=== PATIENT | male | born 1945 | race Caucasian/White ===

== ENCOUNTER → 2016-10-11 | Outpatient (CLI) | payer MEDICARE ==
--- NOTE | 2016-10-11 15:54 | RADIOLOGY REPORT (SQ) ---
EXAM DESCRIPTION: BONE SURVEY COMPLETE COMPLETED DATE/TIME: 10/11/2016 3:35 pm REASON FOR STUDY: MONOCLONAL GAMMOPATHY COMPARISON: None. TECHNIQUE: Images of the axial and proximal appendicular skeleton are obtained, along with lateral s kull and frontal chest films. LIMITATIONS: None. FINDINGS: AP CHEST: No bony findings. Lungs are clear. LATERAL SKULL: Subtle lucencies most consistent with venous lakes. No definite lytic lesion. AP BOTH HUMERI: No worrisome bone lesions. TWO-VIEW LUMBAR SPINE: No worrisome bone lesions. TWO-VIEW THORACIC SPINE: No worrisome bone lesions. AP PELVIS: Coarsened trabecula likely related to patient's age. No definite lytic lesions. AP BOTH FEMURS: Coarsened trabecula likely related to patient's age. No definite lytic lesions. OTHER: No other significant finding. IMPRESSION: Negative bone survey.
== END ==
LOC: RAD 14:54
PROVIDERS: ATTEND Internal Medicine
DX: D47.2 Monoclonal gammopathy (principal)
CPT/HCPCS: 77075

== ENCOUNTER → 2016-10-24 | Outpatient (CLI) | payer MEDICARE ==
--- NOTE | 2016-10-25 12:29 | RADIOLOGY REPORT (SQ) ---
EXAM DESCRIPTION: PET CT WHOLE BODY COMPLETED DATE/TIME: 10/24/2016 10:46 pm REASON FOR STUDY: MYELOMA C90.00 MULTIPLE MYELOMA NOT HAVING ACHIEVED REMISSION COMPARISON: Bone survey 10/11/2016 CT abdomen pelvis 05/27/2008 RADIONUCLIDE AND DOSE: 12.2 mCi F18 FDG The route of agent administration: Intravenous FASTING BLOOD SUGAR: 89 mg/dl CONTRAST TYPE AND DOSE: No CT contrast given. TECHNIQUE: Blood glucose level was verified. Above dose of FDG was injected intravenously. 2-D seg mented attenuation correction images were obtained through the entire body. Noncontrast CT images we re obtained for attenuation correction and fusion with emission images. CT images were performed wit hout oral or intravenous contrast and are not sensitive for parenchymal lesions. A series of overlap ping emission PET images were obtained. Images reviewed and manipulated at independent work station by the radiologist. Images stored on PACS. LIMITATIONS: None. FINDINGS: HEAD AND NECK: No areas of abnormal metabolic activity in the soft tissues of the head and neck. CHEST: No areas of abnormal metabolic activity in the chest. Non metabolic 1.4 x 0.7 cm prevascular lymph node axial image 117 ABDOMEN AND PELVIS: No areas of abnormal metabolic activity in the abdomen or pelvis. Expected physi ologic activity is present in the genitourinary system and bowel. Mild bilateral testicular uptake o f uncertain clinical significance, right testicle SUV 3.6, left testicle SUV 4.2. LOWER EXTREMITIES: No areas of abnormal metabolic activity in the soft tissues of the lower extremiti es. Synovial activity both knees from osteoarthritis BONES: Degenerative changes in the lower lumbar spine with bilateral facet arthropathy and degenerati ve disc loss of height lower lumbar spine. Mild bilateral SI joint arthropathy. There is increased uptake at the left 1st carpometacarpal joint from osteoarthritis. This ADDITIONAL CT FINDINGS: Obstructive lung disease, coronary artery calcifications, 7 mm left lower veronica e intrarenal nonobstructive stone, 5 cm left upper pole renal cortical cyst. Colonic diverticuli wit hout CT signs of acute diverticulitis. OTHER: No other significant findings. IMPRESSION: Findings as above. TECHNICAL DOCUMENTATION: JOB ID: [id number] [employer]- All Rights Reserved
== END ==
LOC: RAD 19:40
PROVIDERS: ATTEND Internal Medicine
DX: C90.00 Multiple myeloma not having achieved remission (principal)
CPT/HCPCS: 78816; A9552

== ENCOUNTER → 2017-01-20 | Outpatient (CLI) | payer MEDICARE, OTHER ==
--- NOTE | 2017-01-20 14:04 | RADIOLOGY REPORT (SQ) ---
EXAM DESCRIPTION: VENOUS BILATERAL LOWER COMPLETED DATE/TIME: 01/20/2017 1:50 pm REASON FOR STUDY: PAIN M79.609 PAIN IN UNSPECIFIED LIMB COMPARISON: None. TECHNIQUE: Dynamic and static ferrara scale and color images acquired of both lower extremity venous sy stems. Selected spectral images acquired with additional compression and augmentation maneuvers. Imag es stored on PACS. LIMITATIONS: None. FINDINGS: RIGHT LEG COMMON FEMORAL AND FEMORAL: Normal phasicity, compression and augmentation. No visualized echogenic m aterial on ferrara scale. No defects on color images. POPLITEAL: Normal compression and augmentation. No visualized echogenic material on ferrara scale. No de fects on color images. CALF VESSELS: Normal compression and augmentation. No visualized echogenic material on ferrara scale. No defects on color image. GSV AND SSV: Normal compression. No visualized echogenic material on ferrara scale. No defects on color images. ANY DEEP VENOUS INSUFFICIENCY: Not evaluated. ANY EVIDENCE OF POPLITEAL CYST: No. OTHER: No other significant finding. LEFT LEG COMMON FEMORAL AND FEMORAL: Normal phasicity, compression and augmentation. No visualized echogenic m aterial on ferrara scale. No defects on color images. POPLITEAL: Normal compression and augmentation. No visualized echogenic material on ferrara scale. No de fects on color images. CALF VESSELS: Normal compression and augmentation. No visualized echogenic material on ferrara scale. No defects on color images. GSV AND SSV: Normal compression. No visualized echogenic material on ferrara scale. No defects on color images. ANY DEEP VENOUS INSUFFICIENCY: Not evaluated. ANY EVIDENCE POPLITEAL CYST: No. OTHER: No other significant finding. IMPRESSION: NO EVIDENCE DVT OR SVT IN EITHER LEG. TECHNICAL DOCUMENTATION: JOB ID: [id number] [employer]- All Rights Reserved
== END ==
LOC: SP 12:47
PROVIDERS: ATTEND Internal Medicine
DX: M79.609 Pain in unspecified limb (principal); M79.89 Other specified soft tissue disorders
CPT/HCPCS: 93970

== ENCOUNTER → 2017-04-14 | Outpatient (CLI) | payer MEDICARE, OTHER ==
--- NOTE | 2017-04-14 13:52 | RADIOLOGY REPORT (SQ) ---
EXAM DESCRIPTION: U/S NON-OB PELVIS LTD W/O DOP COMPLETED DATE/TIME: 04/14/2017 10:01 am REASON FOR STUDY: HERNIA K46.9 UNSPECIFIED ABDOMINAL HERNIA WITHOUT OBSTRUCTION OR GA COMPARISON: None. TECHNIQUE: Dynamic and static grayscale images acquired of the localized site of clinical concern an d recorded on PACS. Additional selected color Doppler and spectral images recorded. SITE OF CONCERN: Right inguinal area. LIMITATIONS: None. FINDINGS: There findings consistent with right inguinal hernia. Motion is noted with Valsalva. IMPRESSION: RIGHT INGUINAL HERNIA. TECHNICAL DOCUMENTATION: JOB ID: [id number] [employer]- All Rights Reserved Reading location - IP/workstation name: [email or web address]
== END ==
LOC: RAD 09:06
PROVIDERS: ATTEND Physician Assistant Medical
DX: K40.90 Unilateral inguinal hernia, without obstruction or gangrene, not specified as recurrent (principal)
CPT/HCPCS: 76857

== ENCOUNTER → 2017-05-30 | Outpatient (CLI) | payer MEDICARE, OTHER ==
[2017-05-30 12:15] LABS: APPEARANCE,URINE CLEAR; BILIRUBIN,URINE NEGATIVE (NEGATIVE); COLOR,URINE YELLOW; GLUCOSE, URINE NEGATIVE (NEGATIVE); KETONES,URINE NEGATIVE (NEGATIVE); LEUKOCYTE ESTERASE,URINE NEGATIVE (NEGATIVE); NITRITE,URINE NEGATIVE (NEGATIVE); PROTEIN,URINE NEGATIVE (NEGATIVE); URINE SPECIFIC GRAVITY 1.009; UROBILINOGEN,URINE NEGATIVE mg/dL (<2.0)
[2017-05-30 12:23] LABS: ABSOLUTE EOSINOPHILS # (AUTO) 0.1 10^3/uL (0.0-0.6); ABSOLUTE LYMPHOCYTES (AUTO) 1.7 10^3/uL (0.5-4.7); ABSOLUTE MONOCYTES (AUTO) 0.6 10^3/uL (0.1-1.4); BASOPHILS % (AUTO) 0.2 % (0-2); EOSINOPHILS % (AUTO) 0.9 % (0-6); HEMATOCRIT 37.4 % (37.9-51.0); HEMOGLOBIN 12.6 g/dL (13.5-17.0); LYMPHOCYTES % (AUTO) 26.8 % (13-45); MEAN CORPUSCULAR HEMOGLOBIN 31.6 pg (27.0-33.4); MEAN CORPUSCULAR HGB CONC 33.6 g/dL (32.0-36.0); MEAN CORPUSCULAR VOLUME 94 fl (80-97); MONOCYTES % (AUTO) 8.8 % (3-13); PLATELET COUNT 242 10^3/uL (150-450); RED BLOOD COUNT 3.98 10^6/uL (4.35-5.55); RED CELL DISTRIBUTION WIDTH 16.6 % (11.5-14.0); SEGMENTED NEUTROPHILS % (AUTO) 63.3 % (42-78); TOTAL CELLS COUNTED % (AUTO) 100 %; WHITE BLOOD COUNT 6.3 10^3/uL (4.0-10.5)
[2017-05-30 12:50] LABS: ANION GAP 10 (5-19); BLOOD UREA NITROGEN 17 mg/dL (7-20); CALCIUM 9.4 mg/dL (8.4-10.2); CARBON DIOXIDE 29 mmol/L (22-30); CHLORIDE 101 mmol/L (98-107); GLUCOSE 98 mg/dL (75-110); POTASSIUM 4.4 mmol/L (3.6-5.0); SODIUM 139.8 mmol/L (137-145)
--- NOTE | 2017-05-30 13:21 | RADIOLOGY REPORT (SQ) ---
EXAM DESCRIPTION: CHEST PA/LATERAL COMPLETED DATE/TIME: 05/30/2017 12:17 pm REASON FOR STUDY: PRE OP COMPARISON: None. EXAM PARAMETERS: NUMBER OF VIEWS: two views TECHNIQUE: Digital Frontal and Lateral radiographic views of the chest acquired. RADIATION DOSE: NA LIMITATIONS: none FINDINGS: LUNGS AND PLEURA: No opacities, masses or pneumothorax. No pleural effusion. MEDIASTINUM AND HILAR STRUCTURES: No masses or contour abnormalities. HEART AND VASCULAR STRUCTURES: Heart normal size. No evidence for failure. BONES: No acute findings. HARDWARE: None in the chest. OTHER: No other significant finding. IMPRESSION: NO SIGNIFICANT RADIOGRAPHIC FINDING IN THE CHEST. TECHNICAL DOCUMENTATION: JOB ID: [id number] [employer]- All Rights Reserved Reading location - IP/workstation name: [email or web address]
--- NOTE | 2017-05-30 15:12 | EKG REPORT ---
SEVERITY:- ABNORMAL ECG - SINUS RHYTHM LEFT ANTERIOR FASCICULAR BLOCK : Confirmed by: Uziel Koehler 30-May-2017 15:11:49
== END ==
LOC: OD 11:35
PROVIDERS: ATTEND Orthopaedic Surgery
DX: Z01.810 Encounter for preprocedural cardiovascular examination (principal); Z01.812 Encounter for preprocedural laboratory examination; Z01.818 Encounter for other preprocedural examination
CPT/HCPCS: 36415; 71046; 80048; 81001; 85025; 93005; 93010

== ENCOUNTER 2017-06-27 05:21 | Inpatient (IN) | payer MEDICARE, OTHER ==
[~2017-06-27 05:21] MED LIST: BUPIVACAINE INJ/PF LIPOSOME/PF 266 MG/20 ML SDV IJ PRN; CEFAZOLIN INJ 1 GM VIAL IV PRN; IBUPROFEN 800 MG/NS 250 ML IV PRN; LACTATED RINGERS 1000 ML IV PRN; LANSOPRAZOLE 15 MG TAB.RAP.DR PO PRN; OXYCODONE HCL SR 10 MG TABLET PO PRN; VANCOMYCIN HCL 1,000 MG in DEXTROSE 5%-WATER 250 ML IV PRN
[2017-06-27] MEDS ORDERED: THROMBIN (BOVINE) TOPICAL 20000 UNIT VIAL ONE (06:39)
[2017-06-27] MEDS ORDERED: THROMBIN (BOVINE) 5000 UNIT EPITAXIS KIT ONE (06:39)
[2017-06-27] MEDS ORDERED: BUPIVACAINE INJ/PF LIPOSOME/PF 266 MG/20 ML SDV ONE (06:39)
[2017-06-27] MEDS ORDERED: MIDAZOLAM 2 MG/2 ML INJ ONE (06:48)
[2017-06-27] MEDS ORDERED: FENTANYL CITRATE INJ/PF 100 MCG/2 ML AMPUL ONE (06:48)
[2017-06-27] MEDS ORDERED: PROPOFOL INJ 200 MG/20 ML VIAL IV ONE (06:48)
[2017-06-27] MEDS ORDERED: EPHEDRINE SULFATE INJ 50 MG/1 ML AMPULE ONE (06:49)
[2017-06-27] MEDS ORDERED: TETRACAINE HCL/PF 20MG/2ML AMPULE (SPINAL) ONE (07:07)
[2017-06-27] MEDS ORDERED: TRANEXAMIC ACID INJ/PF 1,000 MG/10 ML SDV IV ONE ×2 (08:22→12:00)
[2017-06-27] MEDS ORDERED: DIPHENHYDRAMINE HCL 50 MG/ML VIAL IV PRN ×2 (09:18→09:51)
[2017-06-27] MEDS ORDERED: ONDANSETRON HCL INJ/PF 4 MG/2 ML SDV IV PRN ×2 (09:18→09:51)
[2017-06-27] MEDS ORDERED: PROMETHAZINE HCL INJ 25 MG/1 ML VIAL IV PRN (09:18)
[2017-06-27] MEDS ORDERED: FENTANYL CITRATE INJ/PF 100 MCG/2 ML AMPUL IV PRN ×3 (09:18)
--- NOTE | 2017-06-27 09:50 | Operative Report ---
Operative Report DATE OF SURGERY: 06/27/17 PREOPERATIVE DIAGNOSIS: Right knee arthritis OPERATION: Right knee arthroplasty SURGEON: AMAIRANI MURILLO ANESTHESIA: Spinal TISSUE REMOVED OR ALTERED: Bone to pathology ESTIMATED BLOOD LOSS: 100 PROCEDURE: Implants used: Femur: Size 7 Harman triathlon CR femur Tibia: 6 tibia Tibial liner: 9 mm CS insert Patella: 40 mm oval patella Procedure with the patient supine on the operating table the right the limb is prepped and draped in a sterile fashion. The limb was elevated for exsanguination and the tourniquet inflated to 280 torr. A standard midline median parapatellar approach the knee is taken. Access is gained to the femoral canal through the intercondylar notch. Intramedullary alignment instrumentation used to resect 10 mm of distal femur in 5 of valgus. Sizing guide indicated a size 7 femur. Appropriate cutting jig is then used to fashion anterior posterior and chamfer cuts. A trial reduction femurs performed and this is judged to be adequate. Attention was next turned to the tibia. Using an extra medullary alignment system 9 millimeters was resected off the lateral tibial plateau. This is sized to a size 6 tibia. A trial reduction was now performed with a 7 femur and a 6 tibia using a 9 millimeters spacer. It is full extension and central patellofemoral tracking. The articular surface the patella was next resected using an oscillating saw. All trial implants were removed. Polymethylmethacrylate is mixed and used to cement the above implants in place. On adequate curing the cement excess cement was removed the tourniquet was deflated hemostasis obtained the wound is then closed in layers using interrupted Vicryl followed by vanessa. A sterile compressive dressing was applied and the patient returned to recovery room in satisfactory condition.
[2017-06-27] MEDS ORDERED: MAG HYDROX/AL HYDROX/SIMETH SUSP 30 ML UDCUP PO PRN (09:51)
[2017-06-27] MEDS ORDERED: ZOLPIDEM TARTRATE 5 MG TABLET PO PRN (09:51)
[2017-06-27] MEDS ORDERED: MORPHINE SULFATE 10 MG/ML INJ IM PRN (09:51)
[2017-06-27] MEDS ORDERED: ONDANSETRON 4 MG TAB.RAPDIS PO PRN (09:51)
[2017-06-27] MEDS ORDERED: ACETAMINOPHEN 325 MG TABLET PO PRN (09:51)
[2017-06-27] MEDS ORDERED: MORPHINE SULFATE 10 MG/ML INJ IV PRN ×3 (09:51)
[2017-06-27] MEDS ORDERED: RINGERS SOLUTION,LACTATED 1,000 ML IV PRN (09:51)
[2017-06-27] MEDS ORDERED: PSYLLIUM HUSK PO SCH (10:00)
[2017-06-27] MEDS ORDERED: (PENDING PHARMACY ID) (Omeprazole Magnesium [Prilosec Otc] 1 TAB) PO SCH (10:00)
[2017-06-27] MEDS ORDERED: (PENDING PHARMACY ID) (Ranitidine Hcl [Zantac 150 Mg Tablet] 1 TAB) PO SCH (10:00)
[2017-06-27] MEDS ORDERED: UMECLIDINIUM BROMIDE PO SCH (10:00)
[2017-06-27] MEDS ORDERED: MAGNESIUM CITRATE PO SCH (10:00)
[2017-06-27] MEDS ORDERED: PRAVASTATIN SODIUM PO SCH (10:00)
--- NOTE | 2017-06-27 11:05 | Physician Advisory Note ---
Physician Advisor ProgressNote .: [facility] I have reviewed the medical record for this patient. Physician Advisor Statement: Surgical necessity: Nice documentation of nonsurgical options tried, exam, functional disability. Please document all specific pre-op x-ray/scan findings present that [facility] looks for: subchondral cysts, subchondral sclerosis, periarticular osteophytes, joint space narrowing, joint subluxation, AVN/osteonecrosis). Status: 71yo w/COPD, back problems, ongoing smoking, who has just finished chemotx for multiple myeloma last month. Multiple ADLs affected, significant deconditioning expected. Sounds appropriate for Inpt status as per current [facility] guidelines, highly likely to require 2 MNs stay in hospital. CK
--- NOTE | 2017-06-27 11:08 | RADIOLOGY REPORT (SQ) ---
EXAM DESCRIPTION: KNEE RIGHT 2 VIEWS COMPLETED DATE/TIME: 06/27/2017 10:40 am REASON FOR STUDY: RIGHT TOTAL KNEE ARTHROPLASTY M17.11 UNILATERAL PRIMARY OSTEOARTHRITIS, RIGHT KNE E COMPARISON: None. NUMBER OF VIEWS: Two views TECHNIQUE: Digital radiographic images of the right knee post-procedure. LIMITATIONS: None. FINDINGS: BONES: No worrisome or unexpected findings post-procedure. DEVICE: Total knee arthroplasty. Patellar resurfacing SOFT TISSUES: No worrisome findings. Expected postoperative soft tissue changes. IMPRESSION: SATISFACTORY POSTOPERATIVE RIGHT KNEE. TECHNICAL DOCUMENTATION: JOB ID: [id number] [employer]- All Rights Reserved Reading location - IP/workstation name: [email or web address]
[2017-06-27] MEDS: ACETAMINOPHEN 325 MG TABLET PO SCH ×2 (11:52→18:00)
[2017-06-27] MEDS ORDERED: LIDOCAINE 2% INJ-PF (20 MG/ML) 2 ML AMPUL ONE (12:08)
[2017-06-27] MEDS: OXYCODONE HCL IR 5 MG TABLET PO PRN ×2 (12:34→18:04)
[2017-06-27] MEDS: ASCORBIC ACID 500 MG TABLET PO SCH (14:08)
[2017-06-27] MEDS: OXYCODONE HCL SR 10 MG TABLET PO SCH ×2 (14:08→21:58)
[2017-06-27] MEDS: CYCLOBENZAPRINE HCL 10 MG TABLET PO SCH ×2 (14:08→17:58)
[2017-06-27] MEDS: LEVOTHYROXINE SODIUM 0.1 MG TABLET PO SCH (14:08)
[2017-06-27] MEDS: IPRATROPIUM/ALBUTEROL 120 PUFF/4 GM MDI IH SCH ×3 (14:08→21:58)
[2017-06-27] MEDS: ASPIRIN 81 MG TABLET, ENT COATED PO SCH (14:08)
[2017-06-27] MEDS: PRENATAL VITAMIN W DHA CAPSULE PO SCH (14:08)
[2017-06-27] MEDS: FUROSEMIDE 20 MG TABLET PO SCH (14:08)
[2017-06-27] MEDS: VALACYCLOVIR HCL 500 MG TABLET PO SCH ×2 (14:08→18:00)
[2017-06-27] MEDS: SENNOSIDES/DOCUSATE 8.6-50 MG 1 EACH TABLET PO SCH ×2 (14:08→18:00)
[2017-06-27] MEDS: IBUPROFEN 800 MG in NORMAL SALINE 250 ML IV SCH (18:00)
[2017-06-27] MEDS ORDERED: VANCOMYCIN HCL 1,000 MG in DEXTROSE 5%-WATER 250 ML IV ONE (22:00)
--- NOTE | 2017-06-27 23:34 | Physician Advisory Note ---
Physician Advisor ProgressNote .: Pursuant to the plan for [facility], I have reviewed the medical record for this patient. Physician Advisor Statement: STatus f/u check: Pt walked 120 ft w/CGA & FWW today, RLE ROM -7 to 80degrees. (+)falls risk, endurance/safety awareness "fair". Some hypotension & bradycardia of 50s on day of surgery. - If on POD #1, pt is still not yet able to ambulate 300ft & have full ROM, or has other clinical issues that prevent d/c, he will remain appropriate for Inpatient status. - If on POD #1, pt IS able to meet mobilizing goals and is felt safe for d/c after all, but attending honestly documents reasons he had expected pt to require 2 MNs & that he was SURPRISED that pt recovered quickly enough for d/c on POD #1, pt will remain appropriate for Inpatient status. - If attending actually expected pt to go home on POD #1, & this impression is proved correct, pt should not have been Inpatient status. Thanks for your help with documentation/status accuracy! CK
[2017-06-28] MEDS: IBUPROFEN 800 MG in NORMAL SALINE 250 ML IV SCH ×2 (01:49→09:32)
[2017-06-28] MEDS ORDERED: LANSOPRAZOLE 30 MG TAB.RAP.DR PO SCH (06:00)
[2017-06-28] MEDS ORDERED: LANSOPRAZOLE 15 MG TAB.RAP.DR PO SCH (06:00)
[2017-06-28 06:25] LABS: HEMOGLOBIN 11.7 g/dL (13.5-17.0); MEAN CORPUSCULAR HEMOGLOBIN 32.6 pg (27.0-33.4); MEAN CORPUSCULAR HGB CONC 34.3 g/dL (32.0-36.0); MEAN CORPUSCULAR VOLUME 95 fl (80-97); PLATELET COUNT 198 10^3/uL (150-450); RED BLOOD COUNT 3.58 10^6/uL (4.35-5.55); RED CELL DISTRIBUTION WIDTH 15.2 % (11.5-14.0); WHITE BLOOD COUNT 6.6 10^3/uL (4.0-10.5)
[2017-06-28 06:47] LABS: ANION GAP 11 (5-19); BLOOD UREA NITROGEN 14 mg/dL (7-20); CALCIUM 8.4 mg/dL (8.4-10.2); CARBON DIOXIDE 25 mmol/L (22-30); CHLORIDE 104 mmol/L (98-107); GLUCOSE 104 mg/dL (75-110); POTASSIUM 3.9 mmol/L (3.6-5.0); SODIUM 140.1 mmol/L (137-145)
--- NOTE | 2017-06-28 07:12 | PDOC DISCHARGE SUMMARY ---
General - Admit/Disc Date/PCP Admission Date/Primary Care Provider: 06/27/17 05:21 MOLLY CARRASCO PA-C Discharge Date: 06/28/17 - Additional Information Resuscitation Status: Full Code Discharge Diet: As Tolerated, Regular Discharge Activity: Balance Activity w/Rest, No Driving, No tub bath Home Medications: Acetaminophen [Tylenol Extra Strength] 500 mg PO Q4HP PRN 06/27/17 Ascorbic Acid [Vitamin C 500 mg Tablet] 500 mg PO DAILY 06/27/17 Aspirin [Adult Low Dose Aspirin EC] 81 mg PO DAILY 06/27/17 Cyclobenzaprine HCl [Flexeril 5 mg Tablet] 5 mg PO BID 06/27/17 Diphenhydramine HCl [Benadryl 25 mg Capsule] 25 mg PO BIDP PRN 06/27/17 Furosemide [Lasix 20 mg Tablet] 20 mg PO DAILY 06/27/17 Glucosamine Sulfate Dipot Chlr [Glucosamine] 1,000 mg PO DAILY 06/27/17 Ipratropium/Albuterol Sulfate [Combivent Respimat 4 gm Mdi] 1 puff IH BID Levothyroxine Sodium [Synthroid] 100 mcg PO QAM 06/27/17 Morphine Sulfate 15 mg PO Q4HP PRN 06/27/17 Pull[place]-3/Dha/Epa/Fish Oil [Fish Oil 1,000 mg Softgel] 1 cap PO DAILY 06/27/17 Omeprazole 20 mg PO DAILY 06/27/17 Pravastatin Sodium [Pravachol] 20 mg PO QPM 06/27/17 Psyllium Husk [Metamucil] 1.2 gm PO DAILYP PRN 06/27/17 Ranitidine HCl [Zantac 150 mg Tablet] 150 mg PO BID 06/27/17 Tramadol HCl [Ultram 50 mg Tablet] 50 mg PO Q6HP PRN 06/27/17 Umeclidinium [place] [Incruse Ellipta] 1 cap IH Q12 06/27/17 Valacyclovir HCl [Valtrex 500 mg Tablet] 500 mg PO BID 06/27/17 Aspirin [Ecotrin 81 mg EC Tablet] 81 mg PO DAILY tabec 06/28/17 Furosemide [Lasix 20 mg Tablet] 20 mg PO DAILY tablet 06/28/17 Ipratropium/Albuterol Sulfate [Combivent Respimat 4 gm Mdi] 2 puff IH QID aer.w.adap 06/28/17 Levothyroxine Sodium [Synthroid 0.1 mg Tablet] 0.1 mg PO DAILY tablet 06/28/17 Magnesium Oxide [Mag-Ox 400 mg Tablet] 400 mg PO DAILY tablet 06/28/17 Oxycodone HCl [Oxy-Ir 5 mg Tablet] 5 mg PO Q6HP PRN tablet 06/28/17 Valacyclovir HCl [Valtrex 500 mg Tablet] 500 mg PO BID tablet 06/28/17 History of Present Illness History of Present Illness: JOVANNI HARTMAN is a 71 year old male Patient is a 71-year-old white male with progressive right knee pain and functional disability secondary osteoarthritis. Patient is admitted for elective right knee arthroplasty. Hospital Course Hospital Course: Patient is admitted through the operating where he undergoes uncomplicated right knee arthroplasty is returned to floor in satisfactory vision. Seen by physical therapy and begun on a weightbearing as tolerated ambulation. Patient relates 120 feet on the day of surgery. His compressive dressing is removed on the first postoperative morning. The underlying dressing is clean dry and intact. There is minimal pedal edema. Physical Exam Vital Signs: Temp Pulse Resp BP Pulse Ox 36.9 C 78 16 100/61 92 06/27/17 22:56 06/27/17 22:56 06/27/17 22:56 06/27/17 22:56 06/27/17 22:56 Intake & Output 06/27/17 06/28/17 06/29/17 06:59 06:59 06:59 Intake Total 0 5033 Output Total 4450 Balance 0 583 Weight 100.7 kg General appearance: PRESENT: no acute distress Head exam: PRESENT: normocephalic Respiratory exam: PRESENT: unlabored Cardiovascular exam: PRESENT: RRR Pulses: PRESENT: +1 pedal pulses bilateral Vascular exam: PRESENT: normal capillary refill GI/Abdominal exam: PRESENT: soft Rectal exam: PRESENT: deferred Extremities exam: PRESENT: other - Right lower extremity dressing clean dry and intact. There is minimal pedal edema. Neurological exam: PRESENT: alert, awake, oriented to person, oriented to place , oriented to time, oriented to situation. ABSENT: motor sensory deficit Psychiatric exam: PRESENT: appropriate affect, normal mood. ABSENT: homicidal ideation, suicidal ideation Skin exam: PRESENT: dry, intact, warm. ABSENT: cyanosis, rash Results Laboratory Results: 06/28/17 06:00 06/28/17 06:00 06/28/17 06/28/17 06:00 06:00 WBC 6.6 RBC 3.58 L Hgb 11.7 L Hct 34.0 L MCV 95 MCH 32.6 MCHC 34.3 RDW 15.2 H Plt Count 198 Sodium 140.1 Potassium 3.9 Chloride 104 Carbon Dioxide 25 Anion Gap 11 BUN 14 Creatinine 0.90 Est GFR ( Amer) > 60 Est GFR (Non-Af Amer) > 60 Glucose 104 Calcium 8.4 Impressions: Knee X-Ray 06/27/17 00:00 IMPRESSION: SATISFACTORY POSTOPERATIVE RIGHT KNEE. Status: Imported from PACS Qualifiers - * PATIENT BEING DISCHARGED WITH ANY OF THE FOLLOWING DIAGNOSIS: No VTE patient discharged on overlapping Therapy?: Yes Plan Discharge Plan: Patient to be discharged home with home health services. Follow-up with Dr. Ra Cardoso [place] for surgery in 2 weeks for staple removal.
[2017-06-28] MEDS: OXYCODONE HCL SR 10 MG TABLET PO SCH (09:28)
[2017-06-28] MEDS: VALACYCLOVIR HCL 500 MG TABLET PO SCH (09:28)
[2017-06-28] MEDS: ASCORBIC ACID 500 MG TABLET PO SCH (09:29)
[2017-06-28] MEDS: LEVOTHYROXINE SODIUM 0.1 MG TABLET PO SCH (09:29)
[2017-06-28] MEDS: ACETAMINOPHEN 325 MG TABLET PO SCH (09:29)
[2017-06-28] MEDS: SENNOSIDES/DOCUSATE 8.6-50 MG 1 EACH TABLET PO SCH (09:30)
[2017-06-28] MEDS: FUROSEMIDE 20 MG TABLET PO SCH (09:30)
[2017-06-28] MEDS: ASPIRIN 81 MG TABLET, ENT COATED PO SCH (09:30)
[2017-06-28] MEDS: IPRATROPIUM/ALBUTEROL 120 PUFF/4 GM MDI IH SCH (09:31)
[2017-06-28] MEDS: CYCLOBENZAPRINE HCL 10 MG TABLET PO SCH (09:31)
[2017-06-28] MEDS ORDERED: MAGNESIUM OXIDE 400 MG TABLET PO SCH (10:00)
[2017-06-28] MEDS ORDERED: PSYLLIUM SEED-SF 5.85 GM PACKET PO SCH (10:00)
[2017-06-28] MEDS: PRENATAL VITAMIN W DHA CAPSULE PO SCH (10:00)
[2017-06-28 12:19] VITALS: BP 124/76
== END 2017-06-28 12:40 | disposition home health service (06) | DRG 470 ==
LOC: INOR 05:21 → 4S 11:28
PROVIDERS: ADMIT Orthopaedic Surgery; ATTEND Orthopaedic Surgery
PROC: 0SRC0J9 Replacement of Right Knee Joint with Synthetic Substitute, Cemented, Open Approach (ICD-10-PCS; principal; 2017-06-27 08:45)
DX: M17.11 Unilateral primary osteoarthritis, right knee (principal); C90.00 Multiple myeloma not having achieved remission; E03.9 Hypothyroidism, unspecified; E78.5 Hyperlipidemia, unspecified; F17.200 Nicotine dependence, unspecified, uncomplicated; Z79.82 Long term (current) use of aspirin; Z79.899 Other long term (current) drug therapy; Z82.3 Family history of stroke; Z82.49 Family history of ischemic heart disease and other diseases of the circulatory system; Z87.442 Personal history of urinary calculi; Z84.89 Family history of other specified conditions
CPT/HCPCS: 01402; 36415; 80048; 84132; 85027; 88305; 88311; 94799; C9290; G8978-GP; G8979-GP; G8987-GO; G8988-GO; J0690; J1741; J2250; J2270; J2704; J3010; J3370; J3490; J7050; J7060

== ENCOUNTER 2019-06-11 21:23 | Emergency (ER) | payer MEDICARE, OTHER ==
[2019-06-11 22:41] LABS: A TYPE INFLUENZA AG NEGATIVE (NEGATIVE); B INFLUENZA AG NEGATIVE (NEGATIVE)
--- NOTE | 2019-06-11 23:24 | ER Document Report ---
ED General - General Chief Complaint: Flu Symptoms Stated Complaint: FLU LIKE SYMPTOMS Time Seen by Provider: 06/11/19 22:51 Primary Care Provider: MOLLY CARRASCO PA-C [Primary Care Provider] - Follow up as needed TRAVEL OUTSIDE OF THE [place] IN LAST 30 DAYS: No - HPI Notes: Patient is a 73-year-old male who presents to the emergency department for evaluation. He states he has had a cough and sinus drainage for about a month. He just "felt badly." He had some body aches and sinus drainage. He had some pain in his right ear. He was treated with doxycycline. He states he really did not feel much improved in regards to his ear or his body aches, but his cough has improved. He does still have a minimal cough. He denies any shortness of breath. No chest pain. No nausea or vomiting. He states this afternoon he took his temperature orally because he felt chilled. He states his temperature was 103. He thinks around dinner he took some Tylenol, but he cannot be sure what medicine he took or what time he took it. He presents here to the emergency department for further evaluation. - Related Data Allergies/Adverse Reactions: No Known Allergies Allergy (Unverified 06/16/17 11:33) Home Medications: Velcade 0.1 mg every 2 weeks, acyclovir 400 mg daily, Synthroid 100 mcg daily, pravastatin 10 mg daily, Pepcid AC 20 mg twice daily, Prilosec 20 mg once a day, aspirin 81 mg daily, Vicodin 5/325 mg 1 tablet daily, Combivent Respimat 4 times a day, Incruse Ellipta 62.5 mcg once daily, mult ivitamin daily, Tylenol arthritis twice daily, Benadryl 25 mg twice daily, vitamin C 1 g daily, magnesium citrate 400 mg daily Past Medical History - General Information source: Patient - Social History Smoking Status: Former Smoker Frequency of alcohol use: None Drug Abuse: None Family History: Reviewed & Not Pertinent Patient has suicidal ideation: No Patient has homicidal ideation: No - Past Medical History Cardiac Medical History: Reports: Hx Hypercholesterolemia Denies: Hx Atrial Fibrillation, Hx Congestive Heart Failure, Hx Coronary Artery Disease, Hx Heart Attack, Hx Peripheral Vascular Disease, Hx Pulmonary Embolism, Hx Heart Murmur Pulmonary Medical History: Reports: Hx Bronchitis, Hx COPD, Hx Pneumonia Denies: Hx Asthma, Hx Respiratory Failure, Hx Sleep Apnea, Hx Tuberculosis Neurological Medical History: Denies: Hx Cerebrovascular Accident, Hx Seizures Endocrine Medical History: Reports: Hx Hypothyroidism. Denies: Hx Graves' Dis ease, Hx Hyperthyroidism Renal/ Medical History: Reports: Hx Kidney Stones - chronic issue. Denies: Hx Benign Prostatic Hyperplasia, Hx End Stage Renal Disease, Hx Peritoneal Dialysis Malignancy Medical History: Denies Hx Lung Cancer, Reports Other - Multiple myeloma GI Medical History: Reports: Hx Gastroesophageal Reflux Disease. Denies: Hx Crohn's Disease, Hx Hiatal Hernia, Hx Irritable Bowel, Hx Liver Failure, Hx P ancreatitis, Hx Ulcer Musculoskeletal Medical History: Reports Hx Arthritis - knees, Denies Hx Fibromyalgia, Denies Hx Muscular Dystrophy, Denies Hx Systemic Lupus Erythematos us Traumatic Medical History: Denies: Hx Fractures Past Surgical History: Denies: Hx Appendectomy, Hx Bowel Surgery, Hx Cholecystectomy, Hx Colostomy, Hx Coronary Artery Bypass Graft, Hx Gastric Bypass Surgery, Hx Herniorrhaphy, Hx Pacemaker, Hx Tonsillectomy Review of Systems - Review of Systems Constitutional: See HPI EENT: See HPI Respiratory: See HPI -: Yes All other systems reviewed and negative Physical Exam - Vital signs Vitals: Temp Pulse Resp BP Pulse Ox 99.3 F 78 15 143/65 H 93 06/11/19 21:23 06/11/19 21:23 06/11/19 21:23 06/11/19 21:23 06/11/19 21:23 - Notes Notes: Vital signs reviewed, please refer to chart. Head is normocephalic, atraumatic. Pupils equal round, reactive to light. TMs are pearly ferrara with good light reflex. No external auditory canal abnormality noted. Pharynx is mildly erythematous without exudate. Neck is supple without meningismus. Heart is regular rate and rhythm. Lungs are clear to auscultation bilaterally. Abdomen is soft, nontender, normoactive bowel sounds throughout. Extremities without cyanosis, clubbing. Posterior calves are nontender. Peripheral pulses are equal. Skin is warm and dry. Patient is awake, alert, neurological exam is nonfocal. Course - Re-evaluation Re-evalutation: 06/11/19 23:23 Patient presents to the emergency department for evaluation. He is a report of a fever at home. He had influenza testing secondary to triage policy. At this point I will put in rule out sepsis orders. Patient is stable, we will continue to monitor. 06/12/19 01:09 Patient remained stable throughout the course of his stay. He shows a very mild dehydration and a mild increase in his renal function, but his last labs here were several years ago. His urinalysis is unremarkable. His chest x-ray shows possible subsegmental atelectasis versus pneumonitis, but the patient states his cough is actually improved. I am not overly concerned about a significant pneumonia in this patient, especially as he is already completed a course of do xycycline. Blood cultures are pending at this time. At this point, I will have patient follow-up closely with his primary care provider. He is to return to the ER with worsening or new concerning symptoms of any sort. - Vital Signs Vital signs: Temp Pulse Resp BP Pulse Ox 98.5 F 67 18 120/81 93 06/11/19 22:54 06/11/19 22:54 06/11/19 22:54 06/11/19 23:21 06/12/19 00:00 - Laboratory Result Diagrams: 06/11/19 23:21 06/11/19 23:21 Laboratory results interpreted by me: 06/11/19 06/11/19 06/12/19 23:21 23:21 00:45 WBC 10.6 H Sodium 135.6 L BUN 21 H Creatinine 1.44 H Est GFR ( Amer) 58 L Est GFR (MDRD) Non-Af 48 L Glucose 112 H Urine Ascorbic Acid 20 H - Diagnostic Test Radiology reviewed: Reports reviewed Radiology results interpreted by me: 06/12/19 01:09 Chest X-Ray 06/11/19 23:17 IMPRESSION: Minimal bibasilar airspace opacities, as above copyright 2010 [employer]- All Rights Reserved - EKG Interpretation by Me Additional EKG results interpreted by me: 06/12/19 01:09 Sinus mechanism with a rate of 60 bpm. First-degree AV block. Left anterior fascicular block. No acute ST changes concerning for ischemia or infarction, no significant change compared to prior study of May 30, 2017. Discharge - Discharge Clinical Impression: Abnormal chest x-ray Fever Qualifiers: Encounter type: initial encounter Condition: Stable Disposition: HOME, SELF-CARE Instructions: Fever ([facility]) Additional Instructions: No clear cause was identified for your fever today. Your chest x-ray did show an abnormality, and should be repeated by your primary care provider in 2 weeks. Blood cultures are still pending, if any growth occurs you will be contacted. Follow-up with your primary care provider this week. If you develop worsening or new concerning symptoms of any sort, please return immediately to the emerge ncy department for reevaluation. Referrals: MOLLY CARRASCO PA-C [Primary Care Provider] - Follow up as needed
[2019-06-11 23:40] LABS: ABSOLUTE EOSINOPHILS # (AUTO) 0.2 10^3/uL (0.0-0.6); ABSOLUTE LYMPHOCYTES (AUTO) 1.7 10^3/uL (0.5-4.7); ABSOLUTE NEUT (AUTO) 7.7 10^3/uL (1.7-8.2); BASOPHILS % (AUTO) 0.2 % (0-2); EOSINOPHILS % (AUTO) 1.6 % (0-6); HEMATOCRIT 41.7 % (37.9-51.0); HEMOGLOBIN 14.5 g/dL (13.5-17.0); LYMPHOCYTES % (AUTO) 16.2 % (13-45); MEAN CORPUSCULAR HEMOGLOBIN 31.7 pg (27.0-33.4); MEAN CORPUSCULAR HGB CONC 34.8 g/dL (32.0-36.0); MEAN CORPUSCULAR VOLUME 91 fl (80-97); MONOCYTES % (AUTO) 9.2 % (3-13); PLATELET COUNT 175 10^3/uL (150-450); RED BLOOD COUNT 4.58 10^6/uL (4.35-5.55); RED CELL DISTRIBUTION WIDTH 13.5 % (11.5-14.0); SEGMENTED NEUTROPHILS % (AUTO) 72.8 % (42-78); TOTAL CELLS COUNTED % (AUTO) 100 %; WHITE BLOOD COUNT 10.6 10^3/uL (4.0-10.5)
[2019-06-11 23:44] LABS: INTERNATIONAL RATION (INR) 1.09; PROTHROMBIN TIME 14.1 SEC (11.4-15.4)
[2019-06-11 23:57] LABS: ALBUMIN 4.6 g/dL (3.5-5.0); ALKALINE PHOSPHATASE 57 U/L (38-126); ANION GAP 8 (5-19); ASPARTATE AMINO TRANSFERASE 20 U/L (17-59); BILIRUBIN,TOTAL 0.5 mg/dL (0.2-1.3); BLOOD UREA NITROGEN 21 mg/dL (7-20); CALCIUM 9.4 mg/dL (8.4-10.2); CARBON DIOXIDE 30 mmol/L (22-30); CHLORIDE 98 mmol/L (98-107); GLUCOSE 112 mg/dL (75-110); POTASSIUM 4.7 mmol/L (3.6-5.0); TOTAL PROTEIN 7.6 g/dL (6.3-8.2)
--- NOTE | 2019-06-12 00:43 | RADIOLOGY REPORT (SQ) ---
EXAM DESCRIPTION: XR CHEST 1 VIEW COMPLETED DATE/TME: 06/11/2019 23:17 CLINICAL HISTORY: 73 years, Male, fever, cough COMPARISON: 05/30/2017 chest NUMBER OF VIEWS: 1 TECHNIQUE: Portable chest LIMITATIONS: None. FINDINGS: The heart size is normal. No pneumothorax. Minimal airspace opacities over each lung base which may reflect subsegmental atelectasis or pneumonitis. Follow-up recommended. Underlying COPD IMPRESSION: Minimal bibasilar airspace opacities, as above copyright 2010 [employer]- All Rights Reserved
[2019-06-12] MEDS ORDERED: NORMAL SALINE 1000 ML 1,000 ML IV ONE (00:55)
[2019-06-12 01:04] LABS: APPEARANCE,URINE CLEAR; BILIRUBIN,URINE NEGATIVE (NEGATIVE); COLOR,URINE YELLOW; GLUCOSE, URINE NEGATIVE (NEGATIVE); KETONES,URINE NEGATIVE (NEGATIVE); PROTEIN,URINE NEGATIVE (NEGATIVE); URINE SPECIFIC GRAVITY 1.016; UROBILINOGEN,URINE NEGATIVE mg/dL (<2.0)
[2019-06-12 01:19] VITALS: BP 115/62
--- NOTE | 2019-06-12 15:28 | EKG REPORT ---
SEVERITY:- ABNORMAL ECG - SINUS RHYTHM LEFT ANTERIOR FASCICULAR BLOCK : Confirmed by: Fallon Moreira MD 12-Jun-2019 15:27:12
== END 2019-06-12 02:18 | disposition home or self-care (01) ==
LOC: ER 21:23
DX: R91.8 Other nonspecific abnormal finding of lung field (principal); R05 Cough; R09.89 Other specified symptoms and signs involving the circulatory and respiratory systems; H92.01 Otalgia, right ear; E86.0 Dehydration; I44.0 Atrioventricular block, first degree; I44.4 Left anterior fascicular block; J44.9 Chronic obstructive pulmonary disease, unspecified; E03.9 Hypothyroidism, unspecified; E78.00 Pure hypercholesterolemia, unspecified; K21.9 Gastro-esophageal reflux disease without esophagitis; M17.0 Bilateral primary osteoarthritis of knee; Z79.899 Other long term (current) drug therapy; Z87.01 Personal history of pneumonia (recurrent); Z79.82 Long term (current) use of aspirin; Z79.891 Long term (current) use of opiate analgesic; Z87.891 Personal history of nicotine dependence
CPT/HCPCS: 93005; 99284; 96360; 36415; 87040; 83605; 85025; 85610; 80053; 81001; 84484; 87804; 71045; 93010; J7030; 87150

== ENCOUNTER → 2019-06-25 | Outpatient (CLI) | payer MEDICARE ==
--- NOTE | 2019-06-25 11:11 | RADIOLOGY REPORT (SQ) ---
EXAM DESCRIPTION: CT LUNG CANCER SCREENING IMAGES COMPLETED DATE/TIME: 06/25/2019 8:23 am REASON FOR STUDY: PERSONAL HX OF NICOTINE DEPENDENCE (Z87.891) Z87.891 PERSONAL HISTORY OF NICOTINE DEPENDENCE Has the patient had a Chest CT scan within the past year? N Was the patient offered tobacco cessation counseling? Y Was the patient engaged in shared decision making for this test? Y Does the patient have signs or symptoms of Lung Cancer? N Is the patient a smoker? N How many pack years? 60 How many years since quitting smoking? 0.25 Patients age: 73 COMPARISON: PET from 10/24/2016. TECHNIQUE: Low Dose CT scan performed of the chest without intravenous contrast for purposes of scre ening for lung cancer. Images reviewed with lung, soft tissue and bone windows. Reconstructed coron al and sagittal MPR images reviewed. All images stored on PACS. All CT scanners at this facility use dose modulation, iterative reconstruction, and/or weight based d osing when appropriate to reduce radiation dose to as low as reasonably achievable (ALARA). [facility]: Dose Right [facility]: CareDose [facility]: Dose Right [facility]: Teradose 4D [facility]: [employer] RADIATION DOSE: CT Rad equipment meets quality standard of care and radiation dose reduction techniq ues were employed. CTDIvol: NaN mGy. DLP: 0 mGy-cm. LIMITATIONS: No technical limitations. FINDINGS: LUNG NODULES: 1. Solid 6 mm perifissural nodule in the posterior segment of the left upper lobe (image 71 of serie s 3) that is unchanged from 10/24/2016. 2. Solid 6 mm perifissural nodule in the right middle lobe (image 141 of series 3) that is unchanged from 10/24/2016. REMAINING LUNGS AND PLEURA: Moderate upper lobe predominant centrilobular emphysema. There is thi ckening of the bronchial ford and lower lobe predominant bronchiolectasis. The patchy alveolar opac ities scattered throughout the lateral segment of the right middle lobe, lingula, and both lower lobe s are nonspecific but clinical correlation to exclude an acute infection is recommended. There is no sizable pleural effusion. HILAR AND MEDIASTINAL STRUCTURES: Evaluation is limited due to low dose technique. The 7 mm short ax is prevascular lymph node (image 173 of series 2) is stable. There is no mediastinal mass. HEART AND VASCULAR STRUCTURES: No thoracic aortic aneurysm. No cardiomegaly or pericardial effusion. CORONARY ARTERY CALCIFICATIONS: Mild. UPPER ABDOMEN, THYROID, BONES, OTHER SOFT TISSUES: Findings of DISH and probable intraosseous hemangi stacy within the T9 vertebral body. IMPRESSION: 1. Moderate upper lobe predominant centrilobular emphysema. 2. Patchy alveolar opacities scattered throughout the lateral segment of the right middle lobe, ling micah, and both lower lobes. These opacities are nonspecific but clinical correlation to exclude a mul tifocal infection is recommended. LUNGRADS: LUNGRADS: 2 BENIGN APPEARANCE OR BEHAVIOR. NODULES WITH A VERY LOW LIKELIHOOD OF BECOMING A CLINICALLY ACTIVE CANCER DUE TO SIZE OR LACK OF GROWTH. MODIFIER: S CLINICALLY SIGNIFICANT OR POTENTIALLY CLINICALLY SIGNIFICANT FINDINGS. (non lung cancer) RECOMMENDATION: A short-term follow-up CT is recommended to ensure resolution of the previously desc ribed patchy alveolar opacities. COMMENT: CRITERIA: Solid nodule(s): < 6 mm; new < 4 mm. Part solid nodule(s): < 6 mm total diameter on baseline screening. Non solid nodule(s) (GGN): < 20 mm OR ? 20 and unchanged or slowly growing. Category 3 or 4 nodules unchanged for ? 3 months. TECHNICAL DOCUMENTATION: JOB ID: [id number] Quality ID # [id number]: Final reports with documentation of one or more dose reduction techniques (e.g., Au tomated exposure control, adjustment of the mA and/or kV according to patient size, use of iterative reconstruction technique) 2010 [facility], [place] Radiology Reading location - IP/workstation name: [email or web address]
== END ==
LOC: RAD 08:07
PROVIDERS: ATTEND Nurse Practitioner Family
DX: Z12.2 Encounter for screening for malignant neoplasm of respiratory organs (principal); Z87.891 Personal history of nicotine dependence; J43.2 Centrilobular emphysema; R91.8 Other nonspecific abnormal finding of lung field
CPT/HCPCS: G0297